=== PATIENT | male | born 1975 | race Caucasian/White ===

== ENCOUNTER 2021-08-26 16:01 | Emergency (ER) | payer OTHER, SELFPAY ==
[2021-08-26 16:18] VITALS: BP 188/103; PULSE 94; RESP 18; TEMP 36.8; O2SAT 96; BMI 46.9
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
[2021-08-26] MEDS: acetaminophen 500 mg Tablet 1000 MG PO (17:40)
[2021-08-26 18:00] VITALS: BP 167/89; PULSE 84; RESP 18; TEMP 36.7; O2SAT 96
== END 2021-08-26 18:05 | disposition home or self-care (01) ==
PROVIDERS: Emergency Provider Nurse Practitioner Family; PCP Family Medicine
DX: S16.1XXA Strain of muscle, fascia and tendon at neck level, initial encounter (principal); S40.012A Contusion of left shoulder, initial encounter; V89.2XXA Person injured in unspecified motor-vehicle accident, traffic, initial encounter
CPT/HCPCS: 72040; 73030; 99283

== ENCOUNTER 2021-09-21 10:51 | Outpatient (CLI) | payer OTHER, SELFPAY ==
[2021-09-21 11:40] LABS: Basophils # 0.1 10^3/uL (0.0-0.1); Basophils % 1.1 %; Eosinophils # 0.4 10^3/uL (0.0-0.8); Eosinophils % 4.3 %; Hematocrit 57.3 % (42.0-52.0); Hemoglobin 18.8 g/dL (11.7-16.6); Lymphocytes # 1.8 10^3/uL (0.8-4.8); Lymphocytes % 19.9 %; Mean Corpuscular HGB Conc 32.8 g/dL (30.0-36.0); Mean Corpuscular Hemoglobin 28.4 pg (28.0-34.0); Mean Corpuscular Volume 86.4 fl (80-94); Mean Platelet Volume 9.6 fL (7.4-10.4); Monocytes # 0.9 10^3/uL (0.2-0.9); Monocytes % 9.8 %; Neutrophils # 5.66 10^3/uL (1.8-7.7); Neutrophils % 64.2 %; Nucleated Red Blood Cells % 0 %; Platelet Count 359 10^3/cmm (130-400); Red Blood Count 6.63 10^6/uL (4.1-5.3); White Blood Count 8.8 10^3/uL (4.0-10.0)
[2021-09-21] MEDS: sodium chloride 0.9% 500 ML 999 ML IV (15:00)
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
== END 2021-09-21 10:52 | disposition home or self-care (01) ==
PROVIDERS: PCP Family Medicine; Visit Provider Internal Medicine Hematology & Oncology
DX: D45 Polycythemia vera (principal); E66.9 Obesity, unspecified; G47.33 Obstructive sleep apnea (adult) (pediatric); Z79.899 Other long term (current) drug therapy; K21.9 Gastro-esophageal reflux disease without esophagitis; I10 Essential (primary) hypertension; E78.1 Pure hyperglyceridemia; E03.9 Hypothyroidism, unspecified
CPT/HCPCS: 85025; 99195; 99204; J7040

== ENCOUNTER 2021-09-25 15:58 | Outpatient (CLI) | payer SELFPAY ==
--- NOTE | 2021-09-25 16:21 | MR_ITS ---
WS: [id number] MRI LEFT SHOULDER HISTORY: LEFT ANTERIOR SHOULDER PAIN COMPARISON: Radiograph 08/26/2021 TECHNIQUE: Multiplanar sequences of the shoulder joint are submitted. Mild AC joint arthritis. There is joint space narrowing with hypertrophic osteophytes along the joint line. 5 mm osteophyte from the distal undersurface of the acromion with mild encroachment upon the s upraspinatus. No subacromial or subdeltoid fluid. Biceps tendon is in normal position. No os acromion . No rotator cuff tears are identified. There is a small amount of increased T2 signal in the distal ruffin praspinatus tendon most consistent with tendinopathy. At this time no tear is identified. No tendon r etraction. No muscle atrophy or edema. Mild narrowing of the glenohumeral joint. Normal labrum. MR/MR shoulder LT con* [id number] IMPRESSION: 1. Mild distal supraspinatus tendinopathy with no tear. 2. Mild AC joint arthritis. 3. 5 mm osteophyte along the distal undersurface of the acromion with minimal encroachment upon the supraspinatus. 4. No joint effusion.
== END 2021-09-25 15:59 | disposition home or self-care (01) ==
PROVIDERS: PCP Family Medicine; Visit Provider Nurse Practitioner Family
DX: M19.012 Primary osteoarthritis, left shoulder (principal); M25.712 Osteophyte, left shoulder
CPT/HCPCS: 73221

== ENCOUNTER 2021-10-04 12:50 | Outpatient (CLI) | payer OTHER, SELFPAY ==
[2021-10-04 13:48] LABS: Basophils # 0.1 10^3/uL (0.0-0.1); Basophils % 0.7 %; Eosinophils # 0.3 10^3/uL (0.0-0.8); Eosinophils % 3.1 %; Hematocrit 51.8 % (42.0-52.0); Hemoglobin 17.4 g/dL (11.7-16.6); Lymphocytes # 2.1 10^3/uL (0.8-4.8); Lymphocytes % 24.1 %; Mean Corpuscular HGB Conc 33.6 g/dL (30.0-36.0); Mean Corpuscular Hemoglobin 28.4 pg (28.0-34.0); Mean Corpuscular Volume 84.6 fl (80-94); Mean Platelet Volume 9.9 fL (7.4-10.4); Monocytes # 0.6 10^3/uL (0.2-0.9); Monocytes % 7.2 %; Neutrophils # 5.72 10^3/uL (1.8-7.7); Neutrophils % 64.3 %; Nucleated Red Blood Cells % 0 %; Platelet Count 353 10^3/cmm (130-400); Red Blood Count 6.12 10^6/uL (4.1-5.3); Red Cell Distribution Width 13.8 % (12.1-15.1); White Blood Count 8.9 10^3/uL (4.0-10.0)
[2021-10-04 14:24] LABS: Vitamin B12 427 pg/mL (232-1245)
== END 2021-10-04 12:51 | disposition home or self-care (01) ==
PROVIDERS: PCP Family Medicine; Visit Provider Internal Medicine Hematology & Oncology
DX: D75.1 Secondary polycythemia (principal); E66.9 Obesity, unspecified; G47.33 Obstructive sleep apnea (adult) (pediatric); G62.9 Polyneuropathy, unspecified; Z79.899 Other long term (current) drug therapy
CPT/HCPCS: 36415; 82607; 85025

== ENCOUNTER 2021-10-06 08:14 | Outpatient (CLI) | payer OTHER, SELFPAY ==
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
[2021-10-20 22:53] LABS: CALR Exon 9 Mutation NOT DETECTED (NOT DETECTED); CSF3R Exon 14/17 Mutation NOT DETECTED (NOT DETECTED); JAK2 Exon 12 Mutation NOT DETECTED (NOT DETECTED); JAK2 V617 Block Specimen ID NG; JAK2 V617 Clinical Indication NG; JAK2 V617 Mutation NOT DETECTED (NOT DETECTED); JAK2 V617 Specimen Source NG; MPL Exon 12 Mutation NOT DETECTED (NOT DETECTED)
== END 2021-10-06 08:15 | disposition home or self-care (01) ==
PROVIDERS: PCP Family Medicine; Visit Provider Internal Medicine Hematology & Oncology
DX: D75.1 Secondary polycythemia (principal); E66.9 Obesity, unspecified; G47.33 Obstructive sleep apnea (adult) (pediatric); G62.9 Polyneuropathy, unspecified; Z79.899 Other long term (current) drug therapy
CPT/HCPCS: 36415; 81270; 99214

== ENCOUNTER 2021-10-10 20:00 | Outpatient (CLI) | payer OTHER, SELFPAY | END 2021-10-10 20:01 | disposition home or self-care (01) | LOC: SLEEP 10-11 06:56 | PROVIDERS: PCP Family Medicine; Visit Provider Family Medicine | DX: G47.33 Obstructive sleep apnea (adult) (pediatric) (principal) | CPT/HCPCS: 95810 ==

== ENCOUNTER 2021-11-09 20:00 | Outpatient (CLI) | payer OTHER, SELFPAY | END 2021-11-09 20:01 | disposition home or self-care (01) | LOC: SLEEP 11-10 05:05 | PROVIDERS: PCP Family Medicine; Visit Provider Family Medicine | DX: G47.33 Obstructive sleep apnea (adult) (pediatric) (principal) | CPT/HCPCS: 95811 ==

== ENCOUNTER 2021-12-07 09:08 | Oncology outpatient (recurring) (ONCR) | payer OTHER, SELFPAY | END 2022-01-04 23:59 | disposition home or self-care (01) | PROVIDERS: PCP Family Medicine; Referring Provider Nurse Practitioner Family; Visit Provider Internal Medicine Hematology & Oncology | DX: D75.1 Secondary polycythemia (principal); E29.1 Testicular hypofunction; G47.30 Sleep apnea, unspecified; H53.8 Other visual disturbances; Z79.899 Other long term (current) drug therapy | CPT/HCPCS: 85025 ==

== ENCOUNTER 2022-03-26 17:22 | Outpatient (CLI) | payer OTHER, SELFPAY ==
[2022-03-26 18:16] LABS: Basophils # 0.1 10^3/uL (0.0-0.1); Basophils % 0.7 %; Eosinophils # 0.2 10^3/uL (0.0-0.8); Eosinophils % 1.9 %; Hematocrit 48.7 % (42.0-52.0); Hemoglobin 16.4 g/dL (11.7-16.6); Lymphocytes # 2.2 10^3/uL (0.8-4.8); Lymphocytes % 21.9 %; Mean Corpuscular HGB Conc 33.7 g/dL (30.0-36.0); Mean Corpuscular Hemoglobin 29.3 pg (28.0-34.0); Mean Platelet Volume 10.1 fL (7.4-10.4); Monocytes # 0.7 10^3/uL (0.2-0.9); Neutrophils # 6.73 10^3/uL (1.8-7.7); Neutrophils % 68.1 %; Nucleated Red Blood Cells % 0 %; Platelet Count 349 10^3/cmm (130-400); White Blood Count 9.9 10^3/uL (4.0-10.0)
[2022-03-27 03:23] LABS: Testosterone Total - Urology 169 ng/mL (300-1000)
== END 2022-03-26 17:23 | disposition home or self-care (01) ==
LOC: LAB 17:26
PROVIDERS: Internal Medicine Hematology & Oncology; PCP Family Medicine; Visit Provider Urology
DX: R79.89 Other specified abnormal findings of blood chemistry (principal); D75.1 Secondary polycythemia
CPT/HCPCS: 84403; 85025

== ENCOUNTER 2022-04-02 08:37 | Oncology outpatient (recurring) (ONCR) | payer OTHER, SELFPAY | END 2022-04-06 23:59 | disposition home or self-care (01) | PROVIDERS: PCP Family Medicine; Referring Provider Nurse Practitioner Family; Visit Provider Internal Medicine Hematology & Oncology | DX: E34.9 Endocrine disorder, unspecified (principal) | CPT/HCPCS: 81003 ==

== ENCOUNTER 2022-05-09 09:56 | Emergency (ER) | payer OTHER, SELFPAY ==
[2022-05-09 10:15] VITALS: BP 154/96; PULSE 82; RESP 18; TEMP 36.8; O2SAT 96; BMI 43.5
--- NOTE | 2022-05-09 10:47 | XRR_ITS ---
PROCEDURE INFORMATION: Exam: XR Abdomen Exam date and time: 05/09/2022 11:04 AM Age: 46 years old Clinical indication: Abdominal pain; Localized; Right lower quadrant (rlq); Patient HX: Rlq abdomen pain since Saturday; Additional info: Abdominal pain in rlq TECHNIQUE: Imaging protocol: Radiologic exam of the abdomen. Views: Frontal supine view of the abdomen. 1 View. COMPARISON: No relevant prior studies available. FINDINGS: Gastrointestinal tract: Normal. No bowel dilation. Bones/joints: Unremarkable. XR/XR KUB portable [id number] IMPRESSION: No acute findings.
[2022-05-09 10:48] LABS: Glucose Urine UA Trace (Normal); Protein Urine Neg (Negative); Specific Gravity, Urine 1.015 (1.005-1.030); Urine Appearance Clear (CLEAR); Urine Color Yellow (Yellow); pH Urine 7 (5-7)
[2022-05-09 10:49] LABS: Add Urine Microscopic? YES; Bilirubin Urine Neg (Negative); Blood Urine 2+ (Negative); Ketones Urine Negative (Negative); Leukocyte Esterase Urine Negative (Negative); Nitrate Urine Negative (Negative); Urobilinogen Urine Norm (Negative)
[2022-05-09 10:59] LABS: RBC Urine 0-4 /hpf (0-2)
--- NOTE | 2022-05-09 10:59 | ED_ITS ---
Documented by User: ELICIA Cristina 05/10/22 14:52 HPI - Abdominal Pain General: Chief Complaint: Abdominal Pain Stated Complaint: ABD Pain-sent by dr Medley Seen by Provider: 05/09/22 10:03 History of Present Illness: Patient is a 46-year-old male who comes to the ED with abdominal pain. Abdominal pain started approximately 3 days ago. He states the pain is mild to moderate and he rates it a 5 out of 10. He endorses having a decreased appetite since onset of pain. Pain is mild when he wakes up and then as he goes throughout the day abdominal pain gets worse. Denies any fever, nausea/vomiting, bladder or bowel symptoms.. Denies any past surgical history of the abdomen. Associated Symptoms: Denies chills, constipation, diarrhea, dysuria, fever(s), hematochezia, hematuria, nausea and vomiting Review of Systems Const: Denies: fever(s), chills or fatigue Eyes: Denies: change in vision or eye discomfort ENMT: Denies: throat pain, odynophagia, nasal discharge or nasal congestion Card: Denies: chest pain, palpitations, edema, swelling of feet/ankles, dyspnea on exertion or orthopnea Resp: Denies: dyspnea, productive cough or non-productive cough GI: Reports: abdominal pain; Denies: nausea, vomiting, diarrhea, constipation or hematochezia : Denies: flank pain, difficulty urinating, dysuria or hematuria Musc: Denies: neck pain, back pain or extremity swelling Skin/Breast: Denies: rash or new lesions Neuro: Denies: headache(s), numbness in extremities or weakness in extremities PFSH ED PFSH: Surgical History No pertinent past surgical history Family History Grandmother Lung disease COPD Grandfather Cancer Lung cancer Father No problems noted. Mother No problems noted. Other Diabetes Hypertension Denies family history of CAD (coronary artery disease) Clotting disorder Dementia Hyperlipidemia Psychiatric illness Chronic kidney disease (CKD) Suicide Anesthesia complication Bleeding disorder Stroke Social History Smoking and tobacco status: never smoked Alcohol intake: never Marital status: Current occupational status: employed History of recent travel: No Physical Exam Const: COMMON NORMALS: no acute distress, patient oriented x3, healthy appearing and alert GENERAL APPEARANCE: cooperative and comfortable HENMT: COMMON NORMALS: normocephalic HEAD & SCALP: normocephalic MOUTH: Normal oral and palatal mucosa present THROAT: posterior oropharynx normal and uvula midline Neck/C-Spine: COMMON NORMALS: supple GENERAL: Yes normal visual inspection Resp: COMMON NORMALS: normal respiratory effort, No retractions, No use of accessory muscles and clear to auscultation bilaterally AUSCULTATION: clear to auscultation bilaterally Cardio: COMMON NORMALS: regular rate, regular rhythm, S1 normal heart sound present, S2 normal heart sound present, No gallops present (Cardio), No clicks present (Cardio), No murmurs present (Cardio) and Peripheral pulses 2+ throughout RATE: regular rate RHYTHM: regular rhythm HEART SOUNDS: S1 normal heart sound present and S2 normal heart sound present PERIPHERAL PULSES: Peripheral pulses 2+ throughout GI: COMMON NORMALS: Normal to inspection, nondistended, normoactive bowel sounds present, Soft to palpation, non-tender and no masses PALPATION: Yes Soft to palpation : COMMON NORMALS: Yes no CVA tenderness BLADDER/KIDNEY EXAM: Yes no CVA tenderness Back/Pelvis: COMMON NORMALS: no CVA tenderness Extremity: COMMON NORMALS: normal to inspection Neuro: COMMON NORMALS: patient oriented x3 SENSORIUM/ORIENTATION: Yes alert GAIT: Yes Normal gait present Skin: GENERAL SKIN EXAM: dry skin Course Consultations: Consultation #1: I contacted Dr. Bertrand the general surgeon on-call and told about patient case and the CT findings of possible omental infarct or epiploic appendagitis. He said this is self resolving and treatment is NSAIDs. He did not recommend putting patient on an antibiotic. Time: 13:16 Vital Signs: Vital signs: Vital Signs Temperature 98.2 F 05/09/22 10:15 Pulse Rate 74 05/09/22 13:30 Respiratory Rate 18 05/09/22 13:30 Blood Pressure 160/87 05/09/22 13:30 Pulse Oximetry 98 05/09/22 13:30 Oxygen Delivery Me thod 05/09/22 10:15 MDM - Abdominal Pain Medical Decision Making Patient is a 46-year-old male comes in the ED with right lower quadrant abdominal pain. Denies any other symptoms. Vitals are stable. Patient appears nontoxic in no acute distress or pain. Patient has some tenderness to the right lower quadrant of abdomen but rest of exam is benign. Labs were unremarkable patient had a normal white blood cell count. Abdominal x-ray showed no acute findings. CT of abdomen pelvis showed small amount of induration in the mesenteric fat right lower quadrant which is suspicious for omental infarct. I contacted Dr. Bertrand the general surgeon on-call and told about patient case and the CT findings of possible omental infarct or epiploic appendagitis. He said this is self resolving and treatment is NSAIDs. He did not recommend putting patient on an antibiotic. Patient was stable for discharge home and sent with a prescription for ibuprofen 800 mg. He was given a dose of Toradol here in the ED before he went home. Follow-up with PCP in the next week for reevaluation. Strict return to ED precautions given. Patient understood and agreed with plan. Lab Data I reviewed the patient's lab results. : 05/09/22 12:23 05/09/22 12:23 Labs/Radiology: Radiology Impressions KUB X-Ray 05/09/22 10:47 IMPRESSION: No acute findings. Abdomen/Pelvis CT 05/09/22 11:18 IMPRESSION: 1. No hydronephrosis in either kidney. No obstructing renal or ureteral calculi. 2. Tiny nonobstructing RIGHT calyceal tip calculus. 3. Small amount of induration in the mesenteric fat in the RIGHT lower quadrant suspicious for epiploic appendagitis or omental infarct. No drainable fluid collection or abscess. 4. Appendix is not definitely visualized. No evidence of acute appendicitis. Normal ileocecal valve. Notified Arvind Vance at 1245 Laboratory Results WBC 9.3 10^3/uL (4.0-10.0) 05/09/22 12:23 RBC 5.51 10^6/uL (4.1-5.3) H 05/09/22 12:23 Hgb 16.0 g/dL (11.7-16.6) 05/09/22 12:23 Hct 49.5 % (42.0-52.0) 05/09/22 12:23 MCV 89.8 fl (80-94) 05/09/22 12:23 MCH 29.0 pg (28.0-34.0) 05/09/22 12:23 MCHC 32.3 g/dL (30.0-36.0) 05/09/22 12: RDW 13.5 % (12.1-15.1) 05/09/22 12:23 Plt Count 302 10^3/cmm (130-400) 05/09/22 12:23 MPV 10.0 fL (7.4-10.4) 05/09/22 12:23 Neut % (Auto) 63.9 % 05/09/22 12:23 Lymph % (Auto) 23.2 % 05/09/22 12:23 Mcmullen % (Auto) 9.0 % 05/09/22 12: Eos % (Auto) 2.3 % 05/09/22 12: Baso % (Auto) 0.8 % 05/09/22 12:23 Neut # (Auto) 5.94 10^3/uL (1.8-7.7) 05/09/22 12:23 Lymph # (Auto) 2.2 10^3/uL (0.8-4.8) 05/09/22 12:23 Mcmullen # (Auto) 0.8 10^3/uL (0.2-0.9) 05/09/22 12:23 Eos # (Auto) 0.2 10^3/uL (0.0-0.8) 05/09/22 12:23 Baso # (Auto) 0.1 10^3/uL (0.0-0.1) 05/09/22 12:23 Nucleated RBC % (auto) 0 % 05/09/22 12: Nucleated RBCs # 0.0 /100WBC 05/09/22 12:23 Sodium 138 mmol/L (136-145) 05/09/22 12:23 Potassium 4.2 mmol/L (3.5-5.1) 05/09/22 12:23 Chloride 101 mmol/L (98-107) 05/09/22 12:23 Carbon Dioxide 29 mmol/L (22-29) 05/09/22 12:23 Anion Gap 12.2 (5-19) 05/09/22 12:23 BUN 11 mg/dL (6-20) 05/09/22 12:23 Creatinine 0.9 mg/dL (0.7-1.2) 05/09/22 12:23 GFR Calculation 91.3 mL/min (90-130) 05/09/22 12:23 Glucose 75 mg/dL (65-115) 05/09/22 12:23 Calculated Osmolality 284 mOsm/kg (285-295) L 05/09/22 12:23 Calcium 9.2 mg/dL (8.5-10.5) 05/09/22 12:23 Total Bilirubin 0.3 mg/dL (0.15-1.2) 05/09/22 12:23 AST 17 U/L (0-40) 05/09/22 12:23 ALT 16 U/L (0-41) 05/09/22 12:23 Alkaline Phosphatase 68 U/L (40-130) 05/09/22 12:23 Total Protein 7.4 g/dL (6.6-8.7) 05/09/22 12:23 Albumin 4.3 g/dL (3.5-5.2) 05/09/22 12:23 Globulin 3.1 g/dL (1.3-4.6) 05/09/22 12:23 Lipase 34 U/L (13-60) 05/09/22 12:23 Urine Color Yellow (Yellow) 05/09/22 10:42 Urine Appearance Clear (CLEAR) 05/09/22 10:42 Urine pH 7 (5-7) 05/09/22 10:42 Ur Specific [place] 1.015 (1.005-1.030) 05/09/22 10:42 Urine Protein Neg (Negative) 05/09/22 10:42 Urine Glucose (UA) Trace (Normal) H 05/09/22 10:42 Urine Ketones Negative (Negative) 05/09/22 10:42 Urine Blood 2+ (Negative) H 05/09/22 10:42 Urine Nitrate Negative (Negative) 05/09/22 10:42 Urine Bilirubin Neg (Negative) 05/09/22 10:42 Urine Urobilinogen Norm mg/dL (Negative) 05/09/22 10:42 Ur Leukocyte Esterase Negative (Negative) 05/09/22 10:42 Urine RBC 0-4 /hpf (0-2) H 05/09/22 10:42 Urine WBC None /hpf (0-5) 05/09/22 10:42 Ur Squamous Epith Cells None /hpf (0-5) 05/09/22 10:42 Amorphous Sediment Not Reportable 05/09/22 10:42 Urine Bacteria None /hpf (NONE) 05/09/22 10:42 Discharge Plan Discharge Patient Disposition: Home Clinical Impression: Omental infarction Condition: Stable Prescriptions: New ibuprofen 800 mg tablet 800 mg PO Q8H Qty: 30 0RF No Action lisinopril 10 mg tablet 10 mg PO DAILY metformin 500 mg tablet 500 mg PO DAILY gabapentin [Neurontin] 300 mg capsule See Rx Instructions PO DAILY Rx Instructions: Strength unknown PO daily; testosterone cypionate 200 mg/mL kit 200 mg IM .every other week Qty: 10 5RF Discharge Orders: Discharge ED (Routine); Ordered 05/09/22 Ordered By: Arvind Vance Referrals: Zafar Gonzalez MD [Primary Care Provider] - Discharge Diet: Regular Discharge Activity: Increase activity as tolerated Activity Restrictions/Additional Instructions: Follow-up with medical provider as directed in the next 2 to 3 days for reevaluation. Take medications as prescribed. Return to the ER or your medical provider if condition worsens. Please read and understand discharge instructions. Thank you for choosing [facility] for your healthcare needs today. Farheen martha realize this is an emergency room and that we are providing you with a medical screening exam and this may not be complete and all inclusive of all the testing and or work up that you may need to determine your ailment or severity of your illness. It is very important that you follow up as instructed or that you return to the Emergency Department should you have concerns or if your condition changes or worsens in any way. Coding Level of Care Code ED Standard Machine Stitcher for Chg Fwd Exam Comprehensive Documented by User: Nate Allred MD 05/15/22 10:38 HPI - Abdominal Pain General: Chief Complaint: Abdominal Pain Stated Complaint: ABD Pain-sent by Time Seen by Provider: 05/09/22 10:03 PFS ED PFSH: Surgical History No pertinent past surgical history Family History Grandmother Lung disease COPD Grandfather Cancer Lung cancer Father No problems noted. Mother No problems noted. Other Diabetes Hypertension Denies family history of CAD (coronary artery disease) Clotting disorder Dementia Hyperlipidemia Psychiatric illness Chronic kidney disease (CKD) Suicide Anesthesia complication Bleeding disorder Stroke Social History Smoking and tobacco status: never smoked Alcohol intake: never Marital status: Current occupational status: employed History of recent travel: No Course Vital Signs: Vital signs: Vital Signs Temperature 98.2 F 05/09/22 10:15 Pulse Rate 74 05/09/22 13:30 Respiratory Rate 18 05/09/22 13:30 Blood Pressure 160/87 05/09/22 13:30 Pulse Oximetry 98 05/09/22 13:30 Oxygen Delivery Me thod 05/09/22 10:15 MDM - Abdominal Pain Medical Decision Making Patient is a 46-year-old male comes in the ED with right lower quadrant abdominal pain. Denies any other symptoms. Vitals are stable. Patient appears nontoxic in no acute distress or pain. Patient has some tenderness to the right lower quadrant of abdomen but rest of exam is benign. Labs were unremarkable patient had a normal white blood cell count. Abdominal x-ray showed no acute findings. CT of abdomen pelvis showed small amount of induration in the mesenteric fat right lower quadrant which is suspicious for omental infarct. I contacted Dr. Bertrand the general surgeon on-call and told about patient case and the CT findings of possible omental infarct or epiploic appendagitis. He said this is self resolving and treatment is NSAIDs. He did not recommend putting patient on an antibiotic. Patient was stable for discharge home and sent with a prescription for ibuprofen 800 mg. He was given a dose of Toradol here in the ED before he went home. Follow-up with PCP in the next week for reevaluation. Strict return to ED precautions given. Patient understood and agreed with plan. I discussed this case with ELICIA Cristina. I reviewed imaging. I have reviewed documentation. Nate Allred MD Emergency Medicine Lab Data : 05/09/22 12:23 05/09/22 12:23 Labs/Radiology: Radiology Impressions KUB X-Ray 05/09/22 10:47 IMPRESSION: No acute findings. Abdomen/Pelvis CT 05/09/22 11:18 IMPRESSION: 1. No hydronephrosis in either kidney. No obstructing renal or ureteral calculi. 2. Tiny nonobstructing RIGHT calyceal tip calculus. 3. Small amount of induration in the mesenteric fat in the RIGHT lower quadrant suspicious for epiploic appendagitis or omental infarct. No drainable fluid collection or abscess. 4. Appendix is not definitely visualized. No evidence of acute appendicitis. Normal ileocecal valve. Notified Arvind Vance at 1245 Laboratory Results WBC 9.3 10^3/uL (4.0-10.0) 05/09/22 12:23 RBC 5.51 10^6/uL (4.1-5.3) H 05/09/22 12:23 Hgb 16.0 g/dL (11.7-16.6) 05/09/22 12:23 Hct 49.5 % (42.0-52.0) 05/09/22 12:23 MCV 89.8 fl (80-94) 05/09/22 12:23 MCH 29.0 pg (28.0-34.0) 05/09/22 12:23 MCHC 32.3 g/dL (30.0-36.0) 05/09/22 12:23 RDW 13.5 % (12.1-15.1) 05/09/22 12:23 Plt Count 302 10^3/cmm (130-400) 05/09/22 12:23 MPV 10.0 fL (7.4-10.4) 05/09/22 12:23 Neut % (Auto) 63.9 % 05/09/22 12:23 Lymph % (Auto) 23.2 % 05/09/22 12:23 Mcmullen % (Auto) 9.0 % 05/09/22 12:23 Eos % (Auto) 2.3 % 05/09/22 12:23 Baso % (Auto) 0.8 % 05/09/22 12:23 Neut # (Auto) 5.94 10^3/uL (1.8-7.7) 05/09/22 12:23 Lymph # (Auto) 2.2 10^3/uL (0.8-4.8) 05/09/22 12:23 Mcmullen # (Auto) 0.8 10^3/uL (0.2-0.9) 05/09/22 12:23 Eos # (Auto) 0.2 10^3/uL (0.0-0.8) 05/09/22 12:23 Baso # (Auto) 0.1 10^3/uL (0.0-0.1) 05/09/22 12:23 Nucleated RBC % (auto) 0 % 05/09/22 12:23 Nucleated RBCs # 0.0 /100WBC 05/09/22 12:23 Sodium 138 mmol/L (136-145) 05/09/22 12:23 Potassium 4.2 mmol/L (3.5-5.1) 05/09/22 12:23 Chloride 101 mmol/L (98-107) 05/09/22 12:23 Carbon Dioxide 29 mmol/L (22-29) 05/09/22 12:23 Anion Gap 12.2 (5-19) 05/09/22 12:23 BUN 11 mg/dL (6-20) 05/09/22 12:23 Creatinine 0.9 mg/dL (0.7-1.2) 05/09/22 12:23 GFR Calculation 91.3 mL/min (90-130) 05/09/22 12:23 Glucose 75 mg/dL (65-115) 05/09/22 12:23 Calculated Osmolality 284 mOsm/kg (285-295) L 05/09/22 12:23 Calcium 9.2 mg/dL (8.5-10.5) 05/09/22 12:23 Total Bilirubin 0.3 mg/dL (0.15-1.2) 05/09/22 12:23 AST 17 U/L (0-40) 05/09/22 12:23 ALT 16 U/L (0-41) 05/09/22 12:23 Alkaline Phosphatase 68 U/L (40-130) 05/09/22 12:23 Total Protein 7.4 g/dL (6.6-8.7) 05/09/22 12:23 Albumin 4.3 g/dL (3.5-5.2) 05/09/22 12:23 Globulin 3.1 g/dL (1.3-4.6) 05/09/22 12:23 Lipase 34 U/L (13-60) 05/09/22 12:23 Urine Color Yellow (Yellow) 05/09/22 10:42 Urine Appearance Clear (CLEAR) 05/09/22 10:42 Urine pH 7 (5-7) 05/09/22 10:42 Ur Specific [place] 1.015 (1.005-1.030) 05/09/22 10:42 Urine Protein Neg (Negative) 05/09/22 10:42 Urine Glucose (UA) Trace (Normal) H 05/09/22 10:42 Urine Ketones Negative (Negative) 05/09/22 10:42 Urine Blood 2+ (Negative) H 05/09/22 10:42 Urine Nitrate Negative (Negative) 05/09/22 10:42 Urine Bilirubin Neg (Negative) 05/09/22 10:42 Urine Urobilinogen Norm mg/dL (Negative) 05/09/22 10:42 Ur Leukocyte Esterase Negative (Negative) 05/09/22 10:42 Urine RBC 0-4 /hpf (0-2) H 05/09/22 10:42 Urine WBC None /hpf (0-5) 05/09/22 10:42 Ur Squamous Epith Cells None /hpf (0-5) 05/09/22 10:42 Amorphous Sediment Not Reportable 05/09/22 10:42 Urine Bacteria None /hpf (NONE) 05/09/22 10:42 Discharge Plan Discharge Patient Disposition: Home Clinical Impression: Omental infarction Condition: Stable Prescriptions: New ibuprofen 800 mg tablet 800 mg PO Q8H Qty: 30 0RF No Action lisinopril 10 mg tablet 10 mg PO DAILY metformin 500 mg tablet 500 mg PO DAILY gabapentin [Neurontin] 300 mg capsule See Rx Instructions PO DAILY Rx Instructions: Strength unknown PO daily; testosterone cypionate 200 mg/mL kit 200 mg IM .every other week Qty: 10 5RF Discharge Orders: Discharge ED (Routine); Ordered 05/09/22 Ordered By: Arvind Vance Referrals: Zafar Gonzalez MD [Primary Care Provider] - Discharge Diet: Regular Discharge Activity: Increase activity as tolerated Activity Restrictions/Additional Instructions: Follow-up with medical provider as directed in the next 2 to 3 days for reevaluation. Take medications as prescribed. Return to the ER or your medical provider if condition worsens. Please read and understand discharge instructions. Thank you for choosing [facility] for your healthcare needs today. Please realize this is an emergency room and that we are providing you with a medical screening exam and this may not be complete and all inclusive of all the testing and or work up that you may need to determine your ailment or severity of your illness. It is very important that you follow up as instructed or that you return to the Emergency Department should you have concerns or if your condition changes or worsens in any way. Coding Level of Care Code ED Standard Machine Stitcher for Jose Enrique Mancera Exam Comprehensive
[2022-05-09 11:00] LABS: Add Urine Culture? No
--- NOTE | 2022-05-09 11:18 | CT_ITS ---
WS: [id number] CT ABDOMEN PELVIS TECHNIQUE: Noncontrast CT of the abdomen and pelvis with coronal and sagittal reformatted images. CLINICAL INFORMATION: RLQ abdominal pain COMPARISON: None. DLP: 1397.[address] scans at [facility] use at least one of these dose optimization techniques: automated e xposure control; mA and/or kV adjustment per patient size (includes targeted exams where dose is matc hed to clinical indication); or iterative reconstruction. FINDINGS Small amount of induration in the mesenteric fat in the RIGHT lower quadrant suspicious for epiploic appendagitis or omental infarct. Area of induration measures 2.1 x 1.2 x 2.1 cm with central fat atte nuation. This abuts the adjacent cecum and traversing ileal bowel loops. No drainable fluid collectio n or abscess. Normal ileocecal valve. Appendix is not definitely visualized. Normal noncontrast liver. Normal noncontrast spleen. Normal GE junction. Stomach and proximal duodenu m are normal. Adrenal glands are normal. Noncontrast pancreas is normal. No obstructing renal or ureteral calculi. Both ureters are decompressed. Lung bases are well aerated. Normal noncontrast liver and spleen. Adrenal glands are normal. Normal caliber abdominal aorta. A fe w sigmoid diverticuli. No evidence of acute diverticulitis. No high-grade small or large bowel obstru ction. CT/CT abdomen pelvis wo con [id number] IMPRESSION: 1. No hydronephrosis in either kidney. No obstructing renal or ureteral calcul i. 2. Tiny nonobstructing RIGHT calyceal tip calculus. 3. Small amount of induration in the mesenteric fat in the RIGHT lower quadran t suspicious for epiploic appendagitis or omental infarct. No drainable fluid c ollection or abscess. 4. Appendix is not definitely visualized. No evidence of acute appendicitis. N ormal ileocecal valve. Notified Arvind Vance at [id number]
[2022-05-09 11:48] VITALS: BP 160/87; PULSE 74; O2SAT 98
[2022-05-09 12:52] LABS: Basophils # 0.1 10^3/uL (0.0-0.1); Basophils % 0.8 %; Eosinophils # 0.2 10^3/uL (0.0-0.8); Eosinophils % 2.3 %; Hematocrit 49.5 % (42.0-52.0); Lymphocytes # 2.2 10^3/uL (0.8-4.8); Lymphocytes % 23.2 %; Mean Corpuscular HGB Conc 32.3 g/dL (30.0-36.0); Mean Corpuscular Volume 89.8 fl (80-94); Monocytes # 0.8 10^3/uL (0.2-0.9); Neutrophils # 5.94 10^3/uL (1.8-7.7); Neutrophils % 63.9 %; Nucleated Red Blood Cells % 0 %; Platelet Count 302 10^3/cmm (130-400); Red Blood Count 5.51 10^6/uL (4.1-5.3); Red Cell Distribution Width 13.5 % (12.1-15.1); White Blood Count 9.3 10^3/uL (4.0-10.0)
[2022-05-09 13:03] LABS: Alanine Aminotransferase 16 U/L (0-41); Albumin Level 4.3 g/dL (3.5-5.2); Alkaline Phosphatase 68 U/L (40-130); Anion Gap 12.2 (5-19); Aspartate Amino Transferase 17 U/L (0-40); Blood Urea Nitrogen 11 mg/dL (6-20); Calcium 9.2 mg/dL (8.5-10.5); Carbon Dioxide 29 mmol/L (22-29); Chloride 101 mmol/L (98-107); Globulin 3.1 g/dL (1.3-4.6); Glomerular Filtration Rate 91.3 mL/min (90-130); Glucose 75 mg/dL (65-115); Lipase 34 U/L (13-60); Osmolality Calculated 284 mOsm/kg (285-295); Potassium 4.2 mmol/L (3.5-5.1); Sodium 138 mmol/L (136-145); Total Bilirubin 0.3 mg/dL (0.15-1.2); Total Protein 7.4 g/dL (6.6-8.7)
[2022-05-09] MEDS: ketorolac 30 mg/mL INJ IVP (13:22)
[2022-05-09 13:30] VITALS: BP 160/87; PULSE 74; RESP 18; O2SAT 98
== END 2022-05-09 13:31 | disposition home or self-care (01) ==
PROVIDERS: Emergency Provider Physician Assistant; PCP Family Medicine
DX: K55.069 Acute infarction of intestine, part and extent unspecified (principal); Z79.84 Long term (current) use of oral hypoglycemic drugs
CPT/HCPCS: 36415; 74018; 74176; 80053; 81001; 83690; 85025; 96374; 99285; J1885

== ENCOUNTER 2022-06-25 13:42 | Outpatient (CLI) | payer OTHER, SELFPAY ==
[2022-06-25 15:01] LABS: Testosterone Total 402.3 ng/dL (249-836)
== END 2022-06-25 13:43 | disposition home or self-care (01) ==
LOC: RAD 13:49
PROVIDERS: PCP Family Medicine; Visit Provider Urology
DX: E34.9 Endocrine disorder, unspecified (principal)
CPT/HCPCS: 36415; 84403

== ENCOUNTER 2022-07-04 15:54 | Outpatient (CLI) | payer OTHER, SELFPAY ==
[2022-07-04 17:18] LABS: Prostate Specific AG Urology 0.59 ng/mL (0-4)
== END 2022-07-04 15:55 | disposition home or self-care (01) ==
PROVIDERS: PCP Family Medicine; Visit Provider Urology
DX: Z12.5 Encounter for screening for malignant neoplasm of prostate (principal)
CPT/HCPCS: 84153

== ENCOUNTER → 2022-12-13 12:54 | Outpatient (BNVA) | payer OTHER, SELFPAY | PROVIDERS: PCP Family Medicine; Visit Provider Registered Nurse Neonatal Intensive Care | DX: J02.9 Acute pharyngitis, unspecified (principal); B34.9 Viral infection, unspecified | CPT/HCPCS: 87426; 87880 ==

== ENCOUNTER 2023-05-17 15:22 | Emergency (ER) | payer OTHER, SELFPAY ==
[2023-05-17 15:32] VITALS: BP 169/90; PULSE 88; RESP 17; TEMP 36.6; O2SAT 97; BMI 40.8
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
== END 2023-05-17 16:14 | disposition home or self-care (01) ==
PROVIDERS: Emergency Provider Physician Assistant; PCP Family Medicine
DX: S60.222A Contusion of left hand, initial encounter (principal); Z79.84 Long term (current) use of oral hypoglycemic drugs; V89.2XXA Person injured in unspecified motor-vehicle accident, traffic, initial encounter
CPT/HCPCS: 73130; 99283

== ENCOUNTER → 2023-11-25 09:40 | Outpatient (BNVA) | payer OTHER, SELFPAY | PROVIDERS: PCP Family Medicine; Visit Provider Podiatrist Foot & Ankle Surgery | DX: E11.42 Type 2 diabetes mellitus with diabetic polyneuropathy; M21.611 Bunion of right foot; M21.621 Bunionette of right foot; M21.622 Bunionette of left foot; G57.61 Lesion of plantar nerve, right lower limb; Z79.84 Long term (current) use of oral hypoglycemic drugs; L60.3 Nail dystrophy | CPT/HCPCS: 73630 ==

== ENCOUNTER → 2025-04-10 14:27 | Outpatient (BNVA) | payer OTHER, SELFPAY | PROVIDERS: PCP Family Medicine; Visit Provider Nurse Practitioner | DX: R39.9 Unspecified symptoms and signs involving the genitourinary system (principal) | CPT/HCPCS: 81000; 87086 ==

== ENCOUNTER 2025-04-17 17:56 | Emergency (ER) | payer OTHER, SELFPAY ==
[2025-04-17 17:58] VITALS: BP 150/84; PULSE 80; RESP 16; TEMP 36.8; O2SAT 97
--- OUTSIDE RECORDS SUMMARY | 2025-04-17 18:00 | XMS_ITS | Data Portability ---
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 Plan of Treatment Reminders Order Date Submit Date Provider Last Modified By Organization Details Last Modified Time Details Appointments OFFICE VISIT 2024 01:30P M Rai Thomas MD Not available Not available Not available Lab CMP, serum or plasma 2023 [facility], [address] [place] [address], [address] [place], [address], 05/15/2024 13:35:45 HbA1c (hemoglob in A1c), blood 2023 024 [facility], [address] [place] [address] 248, [address] Shashi C, [place], [phone], 05/15/2024 13:35:48 testoster one, total, serum 2023 [facility], [address] [place] [address] 248, [address] Shashi C, KENDR[place], [address], 05/15/2024 13:35:47 Referral None recorded. Procedures None recorded. Surgeries None recorded. Imaging None recorded. Medication Orders dextroamp hetamine- amphetami ne 15 mg tablet 2024 [facility] [place], [facility] [place], [address], 02/02/2025 17:12:09 dextroamp hetamine- amphetami ne 15 mg tablet [address], [address], 09/24/2024 18:31:16 dextroamp hetamine- amphetami ne 15 mg tablet [address], [address], 06/25/2024 13:36:01 metformin ER 750 mg tablet,ex tended release 24 hr [address], [address], 05/28/2024 15:21:31 dextroamp hetamine- amphetami ne 10 mg tablet [address], [address], 06/25/2024 14:11:21 Patient TargetsNo targets recorded. Patient InstructionsNo instructions recorded. Reason for Referral None Reported. Results Created Date Observation Date Name Description Value Unit Range Abnormal Flag Note LastModifiedBy Organization Detail LastModifiedTime 05/14/20 24 05/15/2024 COMPR EHENS DONOVAN METAB OLIC PANEL glucose 167 mg/dL 65-99 high Fasti ng refer ence inter taco For someo ne witho ut known diabe trevin, a gluco se value >125 mg/dL indic ates that they may have diabe trevin and this shoul d be confi rmed with a follo w-up test. Not Available [facility] [address], [place], [address], 05/15/2024 13:35:45 05/14/20 24 05/15/2024 COMPR EHENS DONOVAN METAB OLIC PANEL urea nitrogen (BUN) 14 mg/dL 7-25 normal Not Available [address], [address], 05/15/2024 13:35:45 05/14/20 24 05/15/2024 COMPR EHENS DONOVAN METAB OLIC PANEL creatinine 1.06 mg/dL 0.60-1 .29 normal Not Available [address], [address], 05/15/2024 13:35:45 05/14/20 24 05/15/2024 COMPR EHENS DONOVAN METAB OLIC PANEL eGFR 87 mL/mi n/1.7 3m2 > or = 60 normal Not Available [address], [address], 05/15/2024 13:35:45 05/14/20 24 05/15/2024 COMPR EHENS DONOVAN METAB OLIC PANEL BUN/creatini ne ratio SEE NOTE: (calc ) 6-22 Not Repor bassam: BUN and Creat inine are withi n refer ence range . Not Available [address], [address], 05/15/2024 13:35:45 05/14/20 24 05/15/2024 COMPR EHENS DONOVAN METAB OLIC PANEL sodium 135 mmol/ L 135-14 6 normal Not Available [address], [address], 05/15/2024 13:35:45 05/14/20 24 05/15/2024 COMPR EHENS DONOVAN METAB OLIC PANEL potassium 4.4 mmol/ L 3.5-5. 3 normal Not Available [address], [address], 05/15/2024 13:35:45 05/14/20 24 05/15/2024 COMPR EHENS DONOVAN METAB OLIC PANEL chloride 101 mmol/ L 98-110 normal Not Available [address], [place], [address], 05/15/2024 13:35:45 05/14/20 24 05/15/2024 COMPR EHENS DONOVAN METAB OLIC PANEL carbon dioxide 28 mmol/ L 20-32 normal Not Available [address], [address], 05/15/2024 13:35:45 05/14/20 24 05/15/2024 COMPR EHENS DONOVAN METAB OLIC PANEL calcium 9.0 mg/dL 8.6-10 .3 normal Not Available [address], [address], 05/15/2024 13:35:45 05/14/20 24 05/15/2024 COMPR EHENS DONOVAN METAB OLIC PANEL protein, total 6.6 g/dL 6.1-8. 1 normal Not Available [address], [address], 05/15/2024 13:35:45 05/14/20 24 05/15/2024 COMPR EHENS DONOVAN METAB OLIC PANEL albumin 4.0 g/dL 3.6-5. 1 normal Not Available [address], [address], 05/15/2024 13:35:45 05/14/20 24 05/15/2024 COMPR EHENS DONOVAN METAB OLIC PANEL globulin 2.6 g/dL_ (calc ) 1.9-3. 7 normal Not Available [facility] [address], [address], 05/15/2024 13:35:45 05/14/20 24 05/15/2024 COMPR EHENS DONOVAN METAB OLIC PANEL albumin/glob ulin ratio 1.5 (calc ) 1.0-2. 5 normal Not Available [address], [address], 05/15/2024 13:35:45 05/14/20 24 05/15/2024 COMPR EHENS DONOVAN METAB OLIC PANEL bilirubin, total 0.4 mg/dL 0.2-1. 2 normal Not Available [address] [address] [place], [address], 05/15/2024 13:35:45 05/14/20 24 05/15/2024 COMPR EHENS DONOVAN METAB OLIC PANEL alkaline phosphatase 54 U/L 36-130 normal Not Available [facility] [address] [address] [place], [address], 05/15/2024 13:35:45 05/14/20 24 05/15/2024 COMPR EHENS DONOVAN METAB OLIC PANEL AST 16 U/L 10-40 normal Not Available [address] [address] [place], [address], 05/15/2024 13:35:45 05/14/20 24 05/15/2024 COMPR EHENS DONOVAN METAB OLIC PANEL ALT 20 U/L 9-46 normal Not Available [address], [address], 05/15/2024 13:35:45 05/14/20 24 05/15/2024 TESTO STERO NE, TOTAL , MALES (ADUL T), IA testosterone , total, males (adult), ia 433 NG/dL 250-82 7 normal Not Available [address], [address], 05/15/2024 13:35:46 05/14/20 24 05/15/2024 HEMOG LOBIN A1C hemoglobin A1C 6.7 %_of_ total _HGB <5.7 high For someo ne witho ut known diabe trevin, a hemog lobin A1c value of 6.5% or great er indic ates that they may have diabe trevin and this shoul d be confi rmed with a follo w-up test. For someo ne with known diabe trevin, a value <7% indic ates that their diabe trevin is well contr olled and a value great er than or equal to 7% indic ates subop timal contr ol. A1c targe ts shoul d be indiv idual ized based on durat ion of diabe trevin, age, comor bid condi tions , and other consi derat ions. Curre ntly, no conse nsus exist s regar alberto use of hemog lobin A1c for diagn osis of diabe trevin for child harmeet. Not Available [facility] [address], [place], [address], 05/15/2024 13:35:47 Result Notes None recorded. Problems Name Problem SNOMED Code Status Onset Date Resolution Date Notes Provider Name and Address Organization Details Recorded Time Male hypogonadis m 34850808 Active 2022 GERMAN RIVERA [facility] 5 15:07:59 Testosteron e level below reference range 151587192 Active 2022 GERMAN RIVERA [facility] 5 15:07:59 Hyperglycem ia 09305265 Active 2023 GERMAN RIVERA [facility] 5 15:07:59 Essential hypertensio n 56184043 Active 2023 GERMAN RIVERA [facility] 5 15:07:59 Pain in right foot 3139794703283 07 Active 2023 GERMAN RIVERA [facility] 5 15:08:05 Poor focus 619750621 Active 2024 GERMAN RIVERA [facility] 5 15:07:59 Adult attention deficit hyperactivi ty disorder 630733518 Active 2024 SAMINA MACK [facility] 5 16:54:10 Erectile dysfunction 892746781 Active 2024 SAMINA MACK [facility] 5 08:51:01 Problem Notes None recorded. Medical Equipment None Reported. Allergies No known drug allergies Medications Name Sig Start Date Stop Date Status Note LastModified by Organization Details LastModified Time amoxicill in 500 mg capsule take 1 capsule BY MOUTH TWICE DAILY for 10 days 01/29 completed Not Available Not Available Not Available prednison e 10 mg tablet 12 DAY taper as instruct ions ON how TO take were given in clinic 05/14 completed Not Available Not Available Not Available lisinopri l 20 mg tablet TAKE 1 TABLET BY MOUTH EVERY DAY 06/26 completed Not Available Not Available Not Available dextroamp hetamine- amphetami ne 10 mg tablet Take 1 tablet twice a day by oral route. 06/25 completed dose increase d Not Available Not Available Not Available testoster one cypionate 100 mg/mL intramusc ular oil Inject 0.5 mL every 4 weeks by intramus cular route. 05/14 completed Not Available Not Available Not Available sildenafi l 100 mg tablet TAKE ONE-HALF TO ONE TABLET BY MOUTH EVERY DAY NEEDED active Not Available Not Available No t Available lisinopri l 10 mg tablet daily 06/26 completed Recorded 07/04/20 22 3:26PM by Rai Thomas MD, Office Visit; Refill Quantity : 90; Tablet; Not Available Not Available Not Available dextroamp hetamine- amphetami ne 15 mg tablet TAKE 1 TABLET BY MOUTH TWICE DAILY FOR 30 DAYS active Not Available Not Available No t Available omeprazol e 20 mg capsule,d elayed release qd 2021 active 173; Recorded 07/04/20 22 2:52PM by Vijay randall (Authori williamd through Rai Thomas MD), Office Visit; Not Available Not Available Not Available gabapenti n 100 mg capsule take 1 capsule BY MOUTH THREE TIMES DAILY 11/11 completed Not Available Not Available Not Available testoster one cypionate 200 mg/mL intramusc ular oil Inject 1.25 mL every 4 weeks by intramus cular route for 30 days. 09/24 completed Not Available Not Available Not Available lisinopri l 40 mg tablet TAKE 1 TABLET BY MOUTH EVERY DAY active Not Available Not Available No t Available fluticaso ne propionat e 50 mcg/actua tion nasal spray,kami pension USE 1 SPRAY IN EACH NOSTRIL EVERY DAY 02/01 completed Not Available Not Available Not Available metformin ER 500 mg tablet,ex tended release 24 hr TAKE 1 TABLET BY MOUTH EVERY DAY 06/25 completed dose increase Not Available Not Available Not Available metformin ER 750 mg tablet,ex tended release 24 hr Take 1 tablet every day by oral route. active Not Available Not Available No t Available Answer Blood Glucose System kit daily 2021 active dispense whatever insuranc e covers; Recorded 01/16/20 1:37PM by Vijay randall, Office Visit; Refill Quantity : 0; Not Available Not Available Not Available Glucose Test Strips daily 06/26 completed DM Type 2 dispense whatever insuranc e covers.; Recorded 01/16/20 1:37PM by Vijay randall, Office Visit; Refill Quantity : 100; Each; Not Available Not Available Not Available Vitals Date Recorded Body height Body mass index (BMI) Body weight Oxygen saturation Oxygen saturation in Arterial blood by Pulse oximetry Heart rate Systolic And Diastolic Provider Name and Address Organization Details Last Updated DateTime 5 182.88 cm 40.3 kg/m2 216572. 93 g 97 % 97 % 101 /min 142/90 mm[Hg] GERMAN RIVERA [facility] 5 15:04:42 Date Recorded Body height Body mass index (BMI) Body weight Body temperature Oxygen saturation Oxygen saturation in Arterial blood by Pulse oximetry Heart rate Systolic And Diastolic Provider Name and Address Organization Details Last Updated DateTime 5 182.88 cm 38.1 kg/m2 950538. 86 g 98.1 [degF] 96 % 96 % 85 /min 124/60 mm[Hg] SAMINA MACK [facility] 5 15:05:47 Date Recorded Body height Body mass index (BMI) Body weight Oxygen saturation Oxygen saturation in Arterial blood by Pulse oximetry Heart rate Respiratory rate Body temperature Systolic And Diastolic Provider Name and Address Organization Details Last Updated DateTime 4 182.88 cm 44.9 kg/m2 515153. 07 g 96 % 96 % 89 /min 20 /min 98.2 [degF] 136/70 mm[Hg] [facility]ACK [facility] 4 16:00:38 Date Recorded Body height Body mass index (BMI) Body weight Oxygen saturation Oxygen saturation in Arterial blood by Pulse oximetry Heart rate Respiratory rate Body temperature Systolic And Diastolic Provider Name and Address Organization Details Last Updated DateTime 4 182.88 cm 46 kg/m2 844189. 51 g 98 % 98 % 73 /min 18 /min 98.4 [degF] 144/80 mm[Hg] VIJAY MIMS [facility] 4 14:06:01 Date Recorded Body height Body mass index (BMI) Body weight Oxygen saturation Oxygen saturation in Arterial blood by Pulse oximetry Heart rate Respiratory rate Body temperature Systolic And Diastolic Provider Name and Address Organization Details Last Updated DateTime 4 182.88 cm 44.7 kg/m2 626563. 29 g 97 % 97 % 86 /min 18 /min 98.7 [degF] 140/82 mm[Hg] [facility]AY [facility]IMS [facility] 4 13:06:01 Social History Question Answer Notes LastModified by Organizat ion Details LastModified Time Tobacco Smoking Status Never Smoker [facility]AY [facility]uz [facility] 02/01/2023 11:18:03 What Was The Date Of Your Most Recent Tobacco Screening? 01/29/2025 Information not available 01/29/2025 What Is Your Relationship Status? Information not available 02/01/2023 Sex: Unknown Functional Status Question Answer Note LastModified by Organization D etails LastModified Time Do you or have you ever used any other forms of tobacco or nicotine? No Information not available 01/29/2025 What is your level of alcohol consumption? None Information not available 01/29/2025 Are you able to care for yourself independently? Yes Information not available 02/01/2023 Mental Status None recorded. Family History Nothing Reported Notes:Diabetes Mellitus, Hea rt disease in female family member before age 65, Non-Contributory Family History, Non-Contributory Family History Medical History No medical history recorded. Immunizations Vaccine Type Date Status Note Provider Nam e and Address Organization Details Recorded Time COVID-19, mRNA, LNP-S, PF, 30 mcg/0.3 mL dose 08/05/2020 completed TREBA NEUBAILEYWANDASHLY luz [facility] 02/01/2023 11:16:58 COVID-19, mRNA, LNP-S, PF, 30 mcg/0.3 mL dose 09/02/2020 completed TREBA CITLALLIWANDASHLY luz [facility] 02/01/2023 11:16:58 Tdap 05/12/2008 completed TREBA ALPESH luz [facility] 02/01/2023 11:16:58 Hep A-Hep B 10/27/2008 completed TREBA CITLALLIWANDASHLY luz [facility] 02/01/2023 11:16:58 Hep A-Hep B 11/17/2014 completed TREBA NEUBAILEYWANDER sukh [facility] 02/01/2023 11:16:58 Hep A-Hep B 05/12/2008 completed TREBA NEUBIALEYWANDASHLY luz [facility] 02/01/2023 11:16:58 Past Encounters Encounter ID Performer Location Encounter Start Date Encounter Closed Date Diagnosis/Indication Diagnosis SNOMED-CT Code Diagnosis ICD10 Code Diagnosis IMO Codes Diagnosis Note [id number] Rai Thomas MD [facility] ([facility]) [address] [place], [place] [address] 02/01/2023 10:50:24 02/13/2023 11:14:19 Essential hypertension 53462797 I10 Multiple a xillary skin tags 347467927 D23.5 Testostero ne level below reference range 891517029 R89.1 Neuralgia of left upper limb 5300755727 2971137 M79.2 Neuralgia of right upper limb 4105367828 3894733 M79.2 [id number] Rai Thomas MD [facility] ([facility]) [address] [place], [place] [address] 06/26/2023 10:44:22 06/26/2023 12:41:25 Essential hypertension 73323326 I10 Testostero ne level below reference range 802759516 R89.1 [id number] Rai Thomas MD [facility] ([facility]) [address] [place], [place] [address] 11/11/2023 10:18:37 11/11/2023 13:51:07 Essential hypertension 52504043 I10 Testostero ne level below reference range 255258963 R89.1 [id number] Rai Thomas MD [facility] ([facility]) [address] [place], [place] [address] 11/12/2023 15:34:47 11/12/2023 16:13:23 Testosterone level below reference range 674315205 R89.1 Essential hypertension 25734140 I10 Hyperglycemia 30773290 R 73.9 Pain in right foot 82386 [address] 33826 M79.935 [id number] Rai Thomas MD [facility] ([facility]) [address] [place] [address] 05/14/2024 15:36:51 05/14/2024 16:41:49 Testosterone level below reference range 673120093 R89.1 Essential hypertension 16225835 I10 Hyperglycemia 15191059 R 73.9 [id number] Rai Thomas MD [facility] ([facility]) [address] [place] [address] 05/14/2024 09:21:58 05/14/2024 13:39:18 Male hypogonadism 23592930 E29.1 Hyperglycemia 49581886 R 73.9 pt wasn't fasting so we didn't do his lipid [id number] Rai Thomas MD [facility] ([facility]) [address] [place], [place] [phone] 05/28/2024 13:50:50 05/28/2024 15:18:14 Testosterone level below reference range 690452522 R89.1 Essential hypertension 89411191 I10 Poor focus 521676678 H52 .7 Type 2 gene betes mellitus 82901952 E11.9 Adult atte ntion deficit hyperactivity disorder 734530397 F90.9 [id number] Rai Thomas MD [facility] ([facility]) [address] [place] [address] 06/25/2024 12:53:22 06/25/2024 13:54:39 Essential hypertension 76454837 I10 Poor focus 307665665 H52 .7 [id number] Rai Thomas MD [facility] ([facility]) [address] [place] [address] 09/24/2024 14:21:23 2024 07:34:30 Essential hypertension 86842199 I10 Poor focus 519302499 H52 .7 Adult atte ntion deficit hyperactivity disorder 322650317 F90.9 [id number] Rai Thomas MD [facility] ([facility]) [address] [place] [address] 01/29/2025 14:15:58 01/29/2025 15:15:45 Poor focus 303071457 H52.7 Adult atte ntion deficit hyperactivity disorder 785002546 F90.9 Health Concerns Section Related Observation LastModified by Organization Detai ls LastModified Time None Recorded Concern Status LastModified by Organization Details LastModified Time None Recorded Advance Directives Directive None Recorded Payers Insurance Date Sequence Insurance Name Policy Number Policy King Covered Member ID King Member ID Guarantor Name 09/21/2024 1 [facility] ([facility] Robert Cobb [id number] Robert Cobb 02/08/2025 1 [place] ([facility]) [id number] 1 Robert L Cobb [id number] [facility] Notes Date Note Type Note Provider Name and Address Organization Details Recorded Time 05/14/20 24 text/htm l Hypertension IM/FMReported by PatientHPIFor severity, patient reportsstage 1 (130-139/80-89 mmhg)but reportsmoderate. For quality, patient reportshere for check-up. For duration, patient reportshtn present for ___ years. For onset/timing, patient reportsgradual onset. For alleviating factors, patient reportsmedication. For self care, patient reportsnon-smoker. For associated symptoms, patient reportsno shortness of breath,no fatigue,no palpitations,no numbness, andno tingling. Rai Thomas MD [address] [place] [address], [phone], [facility] 05/14/2024 16:35:44 05/28/20 24 text/htm l ADHDReported by PatientHPIFor sleep, patient reportspoor sleep. For peer relationships, patient reportsvery few. For attention, patient reportsunable to focus,does not listen when spoken to, andno attention to detail. For hyperactivity, patient reportsfidgets/squirms. For impulsivity, patient reportsinterrupts others. For tasking, patient reportsunable to complete tasksandprocrastinatesbut reportsable to initiate tasks. For appetite, patient reportsnormal appetite. For mood, patient reportsstable. For medication side effects, patient reportsno dizziness,no chest pain, andno shortness of breath. For self esteem, (not really high or low). Hypertension IM/FMReported by PatientHPIFor severity, patient reportsstage 1 (130-139/80-89 mmhg)but reportsmoderate. For associated symptoms, patient reportsfatigueandheadachesbut reportsno shortness of breath,no palpitations,no numbness, andno tingling. For quality, patient reportshere for check-up. For duration, patient reportshtn present for ___ years. For onset/timing, patient reportsgradual onset. For alleviating factors, patient reportsmedication. For self care, patient reportsnon-smoker. Rai Thomas MD [address] [place], [address], [facility] 06/13/2024 16:24:05 06/25/20 24 text/htm l ADHDReported by PatientHPIFor sleep, patient reportspoor sleep. For peer relationships, patient reportsvery few. For attention, patient reportsunable to focus,does not listen when spoken to, andno attention to detail. For hyperactivity, patient reportsfidgets/squirms. For impulsivity, patient reportsinterrupts others. For tasking, patient reportsunable to complete tasksandprocrastinatesbut reportsable to initiate tasks. For medication side effects, patient reportsheadaches (occ)but reportsno dizziness,no chest pain, andno shortness of breath. For appetite, patient reportsnormal appetite. For mood, patient reportsstable. For self esteem, (not really high or low). Hypertension IM/FMReported by PatientHPIFor severity, patient reportsstage 1 (130-139/80-89 mmhg)but reportsmoderate. For associated symptoms, patient reportsfatigueandheadachesbut reportsno shortness of breath,no palpitations,no numbness, andno tingling. For quality, patient reportshere for check-up. For duration, patient reportshtn present for ___ years. For onset/timing, patient reportsgradual onset. For alleviating factors, patient reportsmedication. For self care, patient reportsnon-smoker. Pt states his symptoms are more controlled but he thinks he may need a increase. Rai Thomas MD [address] [place], [address], [facility] 06/25/2024 13:30:18 09/25/19 25 text/htm l ADHDReported by PatientHPIFor sleep, patient reportspoor sleep. For peer relationships, patient reportsvery few. For impulsivity, patient reportsinterrupts others. For appetite, patient reportsnormal appetite. For mood, patient reportsstable. For attention, patient reportsable to focus. For hyperactivity, patient reportsdoes not fidget/squirm. For tasking, patient reportsable to initiate tasks,able to complete tasks, andmulti-tasking. For medication side effects, patient reportsno dizziness,no chest pain,no shortness of breath, andno headaches. For self esteem, (not really high or low). Hypertension IM/FMReported by PatientHPIFor severity, patient reportsstage 1 (130-139/80-89 mmhg)but reportsmoderate. For associated symptoms, patient reportsfatigueandheadachesbut reportsno shortness of breath,no palpitations,no numbness, andno tingling. For quality, patient reportshere for check-up. For duration, patient reportshtn present for ___ years. For onset/timing, patient reportsgradual onset. For alleviating factors, patient reportsmedication. For self care, patient reportsnon-smoker. 4mt f/u HTN, focus pt states bp has been running good, admits he has not been checking regularlylast visit we increased dextroamphetamine-amphetamine to 15mg. since increasing medication pt feels that sx have improved Rai Thomas MD [address] [place] [address], [phone], [facility] 09/24/2024 20:25:52 01/30/20 25 text/htm l ADHDReported by PatientHPIFor sleep, patient reportspoor sleep. For peer relationships, patient reportsvery few. For impulsivity, patient reportsinterrupts others. For appetite, patient reportsnormal appetite. For mood, patient reportsstable. For attention, patient reportsable to focus. For hyperactivity, patient reportsdoes not fidget/squirm. For tasking, patient reportsable to initiate tasks,able to complete tasks, andmulti-tasking. For medications, patient reportsprescription medications:. For medication side effects, patient reportsno dizziness,no chest pain,no shortness of breath, andno headaches. For self esteem, (not really high or low). 4u.s[facility] f/u focus Rai Thomas MD [address] [place] [address], [phone], [facility] 01/29/2025 15:14:31
--- NOTE | 2025-04-17 18:18 | CTR_ITS ---
PROCEDURE INFORMATION: Exam: CT Abdomen And Pelvis With Contrast Exam date and time: 04/17/2025 6:37 PM Age: 49 years old Clinical indication: Abdominal pain; Localized; Left lower quadrant (llq); Prior surgery; Surgery date: 6+ months; Surgery type: Inguinal hernia as ; Additional info: Llq pain TECHNIQUE: Imaging protocol: Computed tomography of the abdomen and pelvis with contrast. Radiation optimization: All CT scans at this facility use at least one of these dose optimization techniques: automated exposure control; mA and/or kV adjustment per patient size (includes targeted exams where dose is matched to clinical indication); or iterative reconstruction. Contrast material: OMNIPAQUE 350; Contrast volume: 100 ml; Contrast route: INTRAVENOUS (IV); COMPARISON: CT abdomen pelvis wo con [id number] 05/09/2022 11:34 AM RADIATION DOSE METRICS: Total DLP (mGy-cm): 1382.61 FINDINGS: Liver: Normal. No mass. Gallbladder and biliary ducts: Gallstones without definite significant acute inflammatory changes. Pancreas: Normal. No ductal dilation. Spleen: Normal. No splenomegaly. Adrenal glands: Normal. No mass. Kidneys and ureters: Questionable tiny 2 mm nonobstructing or partially obstructing calculus in the right distal ureter without hydronephrosis or perinephric inflammatory changes. Stomach and bowel: Unremarkable. No obstruction. No mucosal thickening. Appendix: No evidence of appendicitis. Intraperitoneal space: Unremarkable. No free air. No significant fluid collection. Vasculature: Aortic atherosclerosis. Prominent gonadal vein on the left. Lymph nodes: Unremarkable. No enlarged lymph nodes. Urinary bladder: Unremarkable as visualized. Reproductive: Unremarkable as visualized. Bones/joints: Unremarkable. No acute fracture. Soft tissues: Fat containing left inguinal hernia. CT/CT abdomen pelvis w con* [id number] IMPRESSION: 1. Gallstones without definite significant acute inflammatory changes. 2. Questionable tiny 2 mm nonobstructing or partially obstructing calculus in the right distal ureter without hydronephrosis or perinephric inflammatory changes. 3. No definite significant diverticulitis.
[2025-04-17 18:28] LABS: Hematocrit 49.5 % (37-53); Hemoglobin 16.70 g/dL (11.27-16.99); Mean Corpuscular HGB Conc 33.7 g/dL (30-55); Mean Corpuscular Hemoglobin 29.0 pg (27-33); Mean Corpuscular Volume 86.1 fl (82-101); Nucleated Red Blood Cells % 0 %; Platelet Count 335 10^3/cmm (157-399); Red Blood Count 5.75 10^6/uL (3.85-5.65); White Blood Count 9.87 10^3/uL (3.29-11.43)
[2025-04-17 18:29] LABS: Add Urine Microscopic? NO
[2025-04-17] MEDS: iohexol 350 mg/mL 500 mL Btl (per mL) IV (18:41)
[2025-04-17 18:46] LABS: Specific Gravity, Urine 1.020 (1.005-1.030)
[2025-04-17 18:46] LABS: Alanine Aminotransferase 20 U/L (0-41); Albumin Level 4.6 g/dL (3.5-5.2); Alkaline Phosphatase 81 U/L (40-130); Aspartate Amino Transferase 24 U/L (0-40); Blood Urea Nitrogen 15 mg/dL (6-20); Calcium 9.5 mg/dL (8.5-10.5); Carbon Dioxide 23 mmol/L (22-29); Chloride 102 mmol/L (98-107); Creatinine Clr Calc Pharmacy 137.3560; Globulin 3.9 g/dL (1.3-4.6); Glucose 100 mg/dL (65-115); Lipase 41 U/L (13-60); Osmolality Calculated 289 mOsm/kg (285-295); Sodium 139 mmol/L (136-145); Total Protein 8.5 g/dL (6.6-8.7)
[2025-04-17 18:47] LABS: Charge for UA Resulting for Rev; Glucose Urine UA Norm (Normal); Nitrate Urine Negative (Negative)
--- NOTE | 2025-04-17 18:57 | W.ED.GENADLT ---
Documented by User: ELICIA Carr 04/17/25 20:55 HPI - General Adult General: Chief complaint: General Medical Stated complaint: ABD Pain Time Seen by Provider: 04/17/25 18:09 Source: patient Mode of arrival: ambulatory Limitations: no limitations History of Present Illness: Patient is a 49-year-old male who presents the emergency department complaining of left lower quadrant abdominal pain for the past 2 weeks. Notes radiation to the right lower quadrant as well as directly to his back. Notes that the pain has been constant since onset, but will intermittently worsen in intensity. States the pain also radiates intermittently into his left testicle, denies any history of kidney stones. No urinary symptoms such as burning with urination or blood in his urine. No nausea vomiting or diarrhea is noted. Denies any history of abdominal surgeries. Does not specifically endorse any alleviating or exacerbating factors to the pain. He has not take any medications for the pain. His vitals are stable at this time, he is nontoxic-appearing, states he does not need anything for pain or symptoms. MD complaint: Abdominal pain Onset (ago): week(s) (2) Associated symptoms: Deny chest pain, diaphoresis, dyspnea, headache(s), nausea, rash, palpitations or vomiting Related Data Home Medications ?Medication ?Instructions ?Recorded ?Confirmed metformin 500 mg tablet 500 mg PO DAILY 12/07/21 04/10/25 lisinopril 40 mg tablet mg PO 11/25/23 04/10/25 sildenafil 100 mg tablet mg PO 11/25/23 04/10/25 testosterone cypionate 200 mg/mL 200 mg IM 11/25/23 04/10/25 intramuscular oil Previous Rx's ?Medication ?Instructions ?Recorded ibuprofen 800 mg tablet 800 mg PO Q8H pain #30 tabs 05/09/22 fluticasone propionate 50 1 spray intranasal DAILY #16 grams 12/13/22 mcg/actuation nasal spray,suspension (Flonase Allergy Relief) ciprofloxacin HCl 500 mg tablet 500 mg PO BID 7 days #14 tabs 04/10/25 Allergies Allergy/AdvReac Type Severity Reaction Status Date / Time No Known Allergies Allergy Verified 04/10/25 14:09 Review of Systems General: Reports: 10 or more systems reviewed and unremarkable except in HPI and below Const: Denies: fever(s), chills, change in appetite, change in weight or diaphoresis ENMT: Denies: throat pain or hoarseness Card: Denies: chest pain, palpitations or lightheadedness Resp: Denies: dyspnea, productive cough or wheezing GI: Reports: abdominal pain; Denies: nausea, vomiting, diarrhea, constipation, bloating, change in stool character or hematochezia : Reports: testicular pain; Denies: flank pain, difficulty urinating, dysuria, urinary frequency or urinary urgency Musc: Reports: back pain; Denies: neck pain Skin/Breast: Denies: rash or new lesions Neuro: Denies: headache(s) or dizziness PFSH ED PFSH: Surgical History No pertinent past surgical history Family History Grandmother Lung disease COPD Grandfather Cancer Lung cancer Father No problems noted. Mother No problems noted. Other Diabetes Hypertension Denies family history of CAD (coronary artery disease) Clotting disorder Dementia Hyperlipidemia Psychiatric illness Chronic kidney disease (CKD) Suicide Anesthesia complication Bleeding disorder Stroke Social History Smoking and tobacco/nicotine status: never used tobacco/nicotine Alcohol intake: never Marital status: Current occupational status: employed Physical Exam Const: COMMON NORMALS: no acute distress, average body habitus, patient oriented x3, no limitations, healthy appearing, alert and well nourished GENERAL APPEARANCE: cooperative and comfortable ORIENTATION/CONSCIOUSNESS: Yes awake Neck/C-Spine: COMMON NORMALS: full ROM, supple and no meningeal signs Resp: COMMON NORMALS: normal respiratory effort, No retractions, No use of accessory muscles and clear to auscultation bilaterally AUSCULTATION: clear to auscultation bilaterally, no crackles, no rales, no rhonchi and no wheezes Cardio: COMMON NORMALS: regular rate, regular rhythm, No gallops present (Cardio), No clicks present (Cardio), No murmurs present (Cardio) and No rub (Cardio) RATE: regular rate RHYTHM: regular rhythm GI: COMMON NORMALS: Normal to inspection, nondistended, normoactive bowel sounds present, Soft to palpation, non-tender, No hepatosplenomegaly present and no masses AUSCULTATION: Yes normoactive bowel sounds PALPATION: Yes Soft to palpation, No Guarding due to palpation present (GI), No Rigid due to palpation and Yes No hepatosplenomegaly present RECTAL EXAM: Yes deferred : COMMON NORMALS: Yes no CVA tenderness BLADDER/KIDNEY EXAM: Yes no CVA tenderness Back/Pelvis: COMMON NORMALS: no CVA tenderness Extremity: COMMON NORMALS: normal to inspection and full ROM Neuro: COMMON NORMALS: patient oriented x3, moves all extremities, no focal motor deficits and no sensory deficits noted SENSORIUM/ORIENTATION: Yes alert MENINGEAL SIGNS: Yes no meningeal signs Psych: COMMON NORMALS: mental status grossly normal, cooperative and speech normal SPEECH: Yes normal speech Skin: COMMON NORMALS: no rashes or lesions noted GENERAL SKIN EXAM: no rashes or lesions noted Course Vital Signs: Vital signs: Vital Signs Temperature 98.2 F 04/17/25 17:58 Pulse Rate 80 04/17/25 19:17 Respiratory Rate 16 04/17/25 17:58 Blood Pressure 150/84 04/17/25 17:58 Pulse Oximetry 98 04/17/25 19:17 Oxygen Delivery Me thod Room Air 04/17/25 19:17 [facility] - General Adult Medical Decision Making Patient is a 49-year-old male presented with lower abdominal pain for the past 2 weeks, has been constant and intermittently worsening quality. No pertinent past medical history, no surgical history. He had no other accompanying symptoms but noted that the pain radiated to the back as well as into the testicle. No history of kidney stones. Urine is clean of any blood or infection. CBC and CMP unremarkable, as was his lipase. Abdomen and pelvis CT with contrast showing gallstones but no inflammatory changes, questionable calculus to right distal ureter with no concerning hydronephrosis or perinephric changes, and no acute definitive abdominal process to explain his pain. Overall nontoxic on exam, there was no significant reproducible abdominal tenderness to palpation, overall he is stable for discharge home encouraged to follow-up primary care if he continues to have symptoms as he may warrant specialist referral or MRI. Regardless he is stable for discharge home no further workup in the ED necessary at this time. Lab Data 04/17/25 18:17 04/17/25 18:17 Radiology Impressions Abdomen/Pelvis CT 04/17/25 18:18 IMPRESSION: 1. Gallstones without definite significant acute inflammatory changes. 2. Questionable tiny 2 mm nonobstructing or partially obstructing calculus in the right distal ureter without hydronephrosis or perinephric inflammatory changes. 3. No definite significant diverticulitis. Laboratory Results WBC 9.87 10^3/uL (3.29-11.43) 04/17/25 18:17 RBC 5.75 10^6/uL (3.85-5.65) H 04/17/25 18:17 Hgb 16.70 g/dL (11.27-16.99) 04/17/25 18:17 Hct 49.5 % (37-53) 04/17/25 18:17 MCV 86.1 fl (82-101) 04/17/25 18:17 MCH 29.0 pg (27-33) 04/17/25 18:17 MCHC 33.7 g/dL (30-55) 04/17/25 18:17 RDW 13.2 % (12.1-15.1) 04/17/25 18:17 Plt Count 335 10^3/cmm (157-399) 04/17/25 18:17 MPV 9.4 fL (7.4-10.4) 04/17/25 18:17 Neut % (Auto) 60.0 % 04/17/25 18:17 Lymph % (Auto) 27.0 % 04/17/25 18:17 [place] % (Auto) 8.2 % 04/17/25 18:17 Eos % (Auto) 3.2 % 04/17/25 18:17 Baso % (Auto) 1.1 % 04/17/25 18:17 Neut # (Auto) 5.92 10^3/uL (1.8-7.7) 04/17/25 18:17 Lymph # (Auto) 2.7 10^3/uL (0.8-4.8) 04/17/25 18:17 [place] # (Auto) 0.8 10^3/uL (0.2-0.9) 04/17/25 18:17 Eos # (Auto) 0.3 10^3/uL (0.0-0.8) 04/17/25 18:17 Baso # (Auto) 0.1 10^3/uL (0.0-0.1) 04/17/25 18:17 Nucleated RBC % (auto) 0 % 04/17/25 18:17 Nucleated RBCs # 0.0 /100WBC 04/17/25 18:17 Sodium 139 mmol/L (136-145) 04/17/25 18:17 Potassium 4.0 mmol/L (3.5-5.1) 04/17/25 18:17 Chloride 102 mmol/L (98-107) 04/17/25 18:17 Carbon Dioxide 23 mmol/L (22-29) 04/17/25 18:17 Anion Gap 18.0 (5-19) 04/17/25 18:17 BUN 15 mg/dL (6-20) 04/17/25 18:17 Creatinine 0.9 mg/dL (0.7-1.2) 04/17/25 18:17 GFR Calculation 90.1 mL/min (90-130) 04/17/25 18:17 Glucose 100 mg/dL (65-115) 04/17/25 18:17 Calculated Osmolality 289 mOsm/kg (285-295) 04/17/25 18:17 Calcium 9.5 mg/dL (8.5-10.5) 04/17/25 18:17 Total Bilirubin 0.3 mg/dL (0.15-1.2) 04/17/25 18:17 AST 24 U/L (0-40) 04/17/25 18:17 ALT 20 U/L (0-41) 04/17/25 18:17 Alkaline Phosphatase 81 U/L (40-130) 04/17/25 18:17 Total Protein 8.5 g/dL (6.6-8.7) 04/17/25 18:17 Albumin 4.6 g/dL (3.5-5.2) 04/17/25 18:17 Globulin 3.9 g/dL (1.3-4.6) 04/17/25 18:17 Lipase 41 U/L (13-60) 04/17/25 18:17 Urine Color Yellow (Yellow) 04/17/25 18:24 Urine Appearance Clear (CLEAR) 04/17/25 18:24 Urine pH 6 (5-7) 04/17/25 18:24 Ur Specific [place] 1.020 (1.005-1.030) 04/17/25 18:24 Urine Protein Trace (Negative) 04/17/25 18:24 Urine Glucose (UA) Norm (Normal) 04/17/25 18:24 Urine Ketones Negative (Negative) 04/17/25 18:24 Urine Blood Neg (Negative) 04/17/25 18:24 Urine Nitrate Negative (Negative) 04/17/25 18:24 Urine Bilirubin Neg (Negative) 04/17/25 18:24 Urine Urobilinogen Norm mg/dL (Negative) 04/17/25 18:24 Ur Leukocyte Esterase Negative (Negative) 04/17/25 18:24 Amorphous Sediment Not Reportable 04/17/25 18:24 All radiology interpretation(s) finalized by discharge Discharge Plan Discharge Patient Disposition: Home Clinical Impression: Abdominal pain Qualifiers: Abdominal location: multiple sites Qualified Code(s): R10.85 - Abdominal pain of multiple sites Condition: Stable Prescriptions: No Action metformin 500 mg tablet 500 mg PO DAILY fluticasone propionate [Flonase Allergy Relief] 50 mcg/actuation spray,suspension 1 spray intranasal DAILY Qty: 16 0RF Rx Instructions: administer into each nostril sildenafil 100 mg tablet PO lisinopril 40 mg tablet PO testosterone cypionate 200 mg/mL oil 200 mg IM ciprofloxacin HCl 500 mg tablet 500 mg PO BID 7 Days Qty: 14 0RF ibuprofen 800 mg tablet 800 mg PO Q8H Qty: 30 0RF Discharge Orders: Discharge ED (Routine); Ordered 04/17/25 Ordered By: Sarwat Jay Referrals: Zafar Gonzalez MD [Primary Care Provider, Family Practice] Patient Instructions: Abdominal Pain (ED), Patient Portal & Adryan Instructions Activity Restrictions/Additional Instructions: Abdominal Pain Discharge You have been evaluated for abdominal pain. Your lab tests and CT scan did not show any serious or urgent problems. Most cases of nonspecific abdominal pain improve on their own and do not require surgery. What to expect: - Your pain may improve over the next few days. - You may use acetaminophen (Tylenol) or ibuprofen (Advil) for pain relief, as needed, unless you have been told to avoid these medications. - Try to eat a light diet and drink plenty of fluids. - Rest as needed. Follow-up: - You will be referred to your primary care provider for further evaluation and management. - If your pain persists or worsens, your primary care provider may consider additional tests or specialist referral. Return to the emergency department or contact your doctor immediately if you develop any of the following: - Severe or worsening abdominal pain - Persistent vomiting or inability to keep fluids down - Blood in your stool or vomit - Fever over 101?F (38.3?C) - Yellowing of your skin or eyes - Chest pain, shortness of breath, or fainting Other instructions: - Take all medications as directed. - Avoid strenuous activity until your pain improves. - Keep a record of your symptoms to discuss with your primary care provider. If you have any questions or concerns, do not hesitate to contact your healthcare provider. Wishing you a safe and speedy recovery. 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[employer] Documented by User: Ollie Lester DO 04/17/25 21:19 HPI - General Adult General: Chief complaint: General Medical Stated complaint: ABD Pain Time Seen by Provider: 04/17/25 18:09 Related Data Home Medications ?Medication ?Instructions ?Recorded ?Confirmed metformin 500 mg tablet 500 mg PO DAILY 12/07/21 04/10/25 lisinopril 40 mg tablet mg PO 11/25/23 04/10/25 sildenafil 100 mg tablet mg PO 11/25/23 04/10/25 testosterone cypionate 200 mg/mL 200 mg IM 11/25/23 04/10/25 intramuscular oil Previous Rx's ?Medication ?Instructions ?Recorded ibuprofen 800 mg tablet 800 mg PO Q8H pain #30 tabs 05/09/22 fluticasone propionate 50 1 spray intranasal DAILY #16 grams 12/13/22 mcg/actuation nasal spray,suspension (Flonase Allergy Relief) ciprofloxacin HCl 500 mg tablet 500 mg PO BID 7 days #14 tabs 04/10/25 Allergies Allergy/AdvReac Type Severity Reaction Status Date / Time No Known Allergies Allergy Verified 04/10/25 14:09 [facility] PFS: Surgical History No pertinent past surgical history Family History Grandmother Lung disease COPD Grandfather Cancer Lung cancer Father No problems noted. Mother No problems noted. Other Diabetes Hypertension Denies family history of CAD (coronary artery disease) Clotting disorder Dementia Hyperlipidemia Psychiatric illness Chronic kidney disease (CKD) Suicide Anesthesia complication Bleeding disorder Stroke Social History Smoking and tobacco/nicotine status: never used tobacco/nicotine Alcohol intake: never Marital status: Current occupational status: employed Course Vital Signs: Vital signs: Vital Signs Temperature 98.2 F 04/17/25 17:58 Pulse Rate 80 04/17/25 19:17 Respiratory Rate 16 04/17/25 17:58 Blood Pressure 150/84 04/17/25 17:58 Pulse Oximetry 98 04/17/25 19:17 Oxygen Delivery Me thod Room Air 04/17/25 19:17 MDM - General Adult Medical Decision Making Patient is a 49-year-old male presented with lower abdominal pain for the past 2 weeks, has been constant and intermittently worsening quality. No pertinent past medical history, no surgical history. He had no other accompanying symptoms but noted that the pain radiated to the back as well as into the testicle. No history of kidney stones. Urine is clean of any blood or infection. CBC and CMP unremarkable, as was his lipase. Abdomen and pelvis CT with contrast showing gallstones but no inflammatory changes, questionable calculus to right distal ureter with no concerning hydronephrosis or perinephric changes, and no acute definitive abdominal process to explain his pain. Overall nontoxic on exam, there was no significant reproducible abdominal tenderness to palpation, overall he is stable for discharge home encouraged to follow-up primary care if he continues to have symptoms as he may warrant specialist referral or MRI. Regardless he is stable for discharge home no further workup in the ED necessary at this time. Patient originally seen by Mr. Misty PA-C, agree with his history, evaluation, and management. Lab Data 04/17/25 18:17 04/17/25 18:17 Radiology Impressions Abdomen/Pelvis CT 04/17/25 18:18 IMPRESSION: 1. Gallstones without definite significant acute inflammatory changes. 2. Questionable tiny 2 mm nonobstructing or partially obstructing calculus in the right distal ureter without hydronephrosis or perinephric inflammatory changes. 3. No definite significant diverticulitis. Laboratory Results WBC 9.87 10^3/uL (3.29-11.43) 04/17/25 18:17 RBC 5.75 10^6/uL (3.85-5.65) H 04/17/25 18:17 Hgb 16.70 g/dL (11.27-16.99) 04/17/25 18:17 Hct 49.5 % (37-53) 04/17/25 18:17 MCV 86.1 fl (82-101) 04/17/25 18:17 MCH 29.0 pg (27-33) 04/17/25 18:17 MCHC 33.7 g/dL (30-55) 04/17/25 18:17 RDW 13.2 % (12.1-15.1) 04/17/25 18:17 Plt Count 335 10^3/cmm (157-399) 04/17/25 18:17 MPV 9.4 fL (7.4-10.4) 04/17/25 18:17 Neut % (Auto) 60.0 % 04/17/25 18:17 Lymph % (Auto) 27.0 % 04/17/25 18:17 [place] % (Auto) 8.2 % 04/17/25 18:17 Eos % (Auto) 3.2 % 04/17/25 18:17 Baso % (Auto) 1.1 % 04/17/25 18:17 Neut # (Auto) 5.92 10^3/uL (1.8-7.7) 04/17/25 18:17 Lymph # (Auto) 2.7 10^3/uL (0.8-4.8) 04/17/25 18:17 [place] # (Auto) 0.8 10^3/uL (0.2-0.9) 04/17/25 18:17 Eos # (Auto) 0.3 10^3/uL (0.0-0.8) 04/17/25 18:17 Baso # (Auto) 0.1 10^3/uL (0.0-0.1) 04/17/25 18:17 Nucleated RBC % (auto) 0 % 04/17/25 18:17 Nucleated RBCs # 0.0 /100WBC 04/17/25 18:17 Sodium 139 mmol/L (136-145) 04/17/25 18:17 Potassium 4.0 mmol/L (3.5-5.1) 04/17/25 18:17 Chloride 102 mmol/L (98-107) 04/17/25 18:17 Carbon Dioxide 23 mmol/L (22-29) 04/17/25 18:17 Anion Gap 18.0 (5-19) 04/17/25 18:17 BUN 15 mg/dL (6-20) 04/17/25 18:17 Creatinine 0.9 mg/dL (0.7-1.2) 04/17/25 18:17 GFR Calculation 90.1 mL/min (90-130) 04/17/25 18:17 Glucose 100 mg/dL (65-115) 04/17/25 18:17 Calculated Osmolality 289 mOsm/kg (285-295) 04/17/25 18:17 Calcium 9.5 mg/dL (8.5-10.5) 04/17/25 18:17 Total Bilirubin 0.3 mg/dL (0.15-1.2) 04/17/25 18:17 AST 24 U/L (0-40) 04/17/25 18:17 ALT 20 U/L (0-41) 04/17/25 18:17 Alkaline Phosphatase 81 U/L (40-130) 04/17/25 18:17 Total Protein 8.5 g/dL (6.6-8.7) 04/17/25 18:17 Albumin 4.6 g/dL (3.5-5.2) 04/17/25 18:17 Globulin 3.9 g/dL (1.3-4.6) 04/17/25 18:17 Lipase 41 U/L (13-60) 04/17/25 18:17 Urine Color Yellow (Yellow) 04/17/25 18:24 Urine Appearance Clear (CLEAR) 04/17/25 18:24 Urine pH 6 (5-7) 04/17/25 18:24 Ur Specific [place] 1.020 (1.005-1.030) 04/17/25 18:24 Urine Protein Trace (Negative) 04/17/25 18:24 Urine Glucose (UA) Norm (Normal) 04/17/25 18:24 Urine Ketones Negative (Negative) 04/17/25 18:24 Urine Blood Neg (Negative) 04/17/25 18:24 Urine Nitrate Negative (Negative) 04/17/25 18:24 Urine Bilirubin Neg (Negative) 04/17/25 18:24 Urine Urobilinogen Norm mg/dL (Negative) 04/17/25 18:24 Ur Leukocyte Esterase Negative (Negative) 04/17/25 18:24 Amorphous Sediment Not Reportable 04/17/25 18:24 Discharge Plan Discharge Patient Disposition: Home Clinical Impression: Abdominal pain Qualifiers: Abdominal location: multiple sites Qualified Code(s): R10.85 - Abdominal pain of multiple sites Condition: Stable Prescriptions: No Action metformin 500 mg tablet 500 mg PO DAILY fluticasone propionate [Flonase Allergy Relief] 50 mcg/actuation spray,suspension 1 spray intranasal DAILY Qty: 16 0RF Rx Instructions: administer into each nostril sildenafil 100 mg tablet PO lisinopril 40 mg tablet PO testosterone cypionate 200 mg/mL oil 200 mg IM ciprofloxacin HCl 500 mg tablet 500 mg PO BID 7 Days Qty: 14 0RF ibuprofen 800 mg tablet 800 mg PO Q8H Qty: 30 0RF Discharge Orders: Discharge ED (Routine); Ordered 04/17/25 Ordered By: Sarwat Jay Referrals: Zafar Gonzalez MD [Primary Care Provider, [facility]] Patient Instructions: Abdominal Pain (ED), Patient Portal & [facility]ryan Instructions Activity Restrictions/Additional Instructions: Abdominal Pain Discharge You have been evaluated for abdominal pain. Your lab tests and CT scan did not show any serious or urgent problems. Most cases of nonspecific abdominal pain improve on their own and do not require surgery. What to expect: - Your pain may improve over the next few days. - You may use acetaminophen (Tylenol) or ibuprofen (Advil) for pain relief, as needed, unless you have been told to avoid these medications. - Try to eat a light diet and drink plenty of fluids. - Rest as needed. Follow-up: - You will be referred to your primary care provider for further evaluation and management. - If your pain persists or worsens, your primary care provider may consider additional tests or specialist referral. Return to the emergency department or contact your doctor immediately if you develop any of the following: - Severe or worsening abdominal pain - Persistent vomiting or inability to keep fluids down - Blood in your stool or vomit - Fever over 101?F (38.3?C) - Yellowing of your skin or eyes - Chest pain, shortness of breath, or fainting Other instructions: - Take all medications as directed. - Avoid strenuous activity until your pain improves. - Keep a record of your symptoms to discuss with your primary care provider. If you have any questions or concerns, do not hesitate to contact your healthcare provider. Wishing you a safe and speedy recovery. 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
[2025-04-17 19:06] LABS: Anion Gap 18.0 (5-19); Potassium 4.0 mmol/L (3.5-5.1)
[2025-04-17 19:17] VITALS: PULSE 80; O2SAT 98
== END 2025-04-17 20:56 | disposition home or self-care (01) ==
PROVIDERS: Emergency Provider Physician Assistant; PCP Family Medicine
DX: R10.85 Abdominal pain of multiple sites (principal)
CPT/HCPCS: 36415; 74177; 80053; 81003; 83690; 85025; 99285